=== PATIENT | female | born 1980 | race Caucasian/White ===

== ENCOUNTER 2018-09-19 10:20 | Emergency (ER) | payer BC, OTHER ==
--- NOTE | 2018-09-19 10:34 | Emergency Department Record ---
History of Present Illness - General Chief complaint: Extremity Problem Stated complaint: INFECTION IN TOE Time Seen by Provider: 09/19/18 10:29 Source: Patient Mode of Arrival: Ambulatory Limitations: No limitations - History of Present Illness Initial comments: recurrent irritation redness and pain to left great toenail at lateral margin. No fever. Pain goes into top of foot. No prior treatment. Onset/Timin -: Week(s) Location: Left Severity scale (1-10): 6 Quality: Aching Consistency: Constant Improves with: Nothing Worsens with: Nothing Associated Symptoms: Denies other symptoms - Related Data Previous Rx's Medication Instructions Recorded Cephalexin [Keflex] 1,000 mg PO BID 7 Days #28 cap 09/19/18 Review of Systems Constitutional: Denies: Chills, Fever, Weakness Eyes: Denies: Eye discharge ENT: Denies: Congestion Respiratory: Denies: Cough Cardiovascular: Denies: Chest pain Endocrine: Denies: Fatigue Gastrointestinal: Denies: Abdominal pain Musculoskeletal: Reports: As per HPI Skin: Denies: Bruising Neurological: Denies: Abnormal gait Psychiatric: Denies: Anxiety Physical Exam - General General Appearance: Alert, Oriented x3, Cooperative, No acute distress - Head Head exam: Normal inspection - Eye Eye exam: Normal appearance, PERRL - ENT ENT exam: Mucous membranes moist, Normal external ear exam - Neck Neck exam: Normal inspection, Full ROM. negative: Tenderness - Respiratory Respiratory exam: Normal lung sounds bilaterally. negative: Respiratory distress - Cardiovascular Cardiovascular Exam: Regular rate, Normal rhythm, Normal heart sounds - Extremities Extremities exam: Tenderness Image of Feet: 1 - paina nd swelling with redness, no fluctuance. - Back Back exam: Reports: Normal inspection - Neurological Neurological exam: Alert, Normal gait, Oriented X3 - Psychiatric Psychiatric exam: Normal affect, Normal mood - Skin Skin exam: Normal color Course - Reevaluation(s) Reevaluation #1: 09/19/18 10:35 Plan for warm soaks with po antibiotic and referral to Podiatry for definative care. Disposition Disposition: Discharge Clinical Impression: Ingrown left big toenail Disposition: Home, Self-Care Condition: (1) Good Instructions: Warm Compress or Soak (ED), Ingrown Nail (ED) Prescriptions: Cephalexin [Keflex] 1,000 mg PO BID 7 Days #28 cap Referrals: VANCE VELÁSQUEZ [DOCTOR OF PODIATRY MEDICINE] - Time of Disposition: 10:32 Quality - Quality Measures Quality Measures: N/A - Blood Pressure Screening Does Patient Have Any of the Following: No Systolic Measurement: ~ Screening for High Blood Pressure: < Pre-Hypertensive BP, F/U Documented > [ [id number]] Pre-Hypertensive Follow-up Interventions: Follow-up with rescreen every year.
== END 2018-09-19 10:48 | disposition home or self-care (01) ==
LOC: ER 10:20
DX: L60.0 Ingrowing nail (principal)
CPT/HCPCS: 99282